=== PATIENT | female | born 1995 | race Caucasian/White ===

== ENCOUNTER → 2016-09-26 | Outpatient (CLI) | payer OTHER ==
[~2016-09-26] MED LIST: BUSP-8 PO; MAGN400T6 PO; PRENTAB26 PO
== END | disposition home or self-care (01) ==
LOC: C.PAPS 16:17
PROVIDERS: ATTEND Obstetrics & Gynecology
DX: Z12.4 Encounter for screening for malignant neoplasm of cervix (principal)

== ENCOUNTER → 2017-01-22 | Outpatient (CLI) | payer OTHER | END | disposition home or self-care (01) | LOC: C.LAB 12:14 | PROVIDERS: ATTEND Obstetrics & Gynecology | DX: Z34.01 Encounter for supervision of normal first pregnancy, first trimester (principal) ==

== ENCOUNTER → 2017-01-24 | Outpatient (CLI) | payer OTHER | LOC: C.LAB 12:52 | PROVIDERS: ATTEND Obstetrics & Gynecology | DX: Z34.01 Encounter for supervision of normal first pregnancy, first trimester (principal) ==

== ENCOUNTER → 2017-01-26 | Outpatient (CLI) | payer OTHER ==
[2017-01-26 13:08] LABS: BASO % 0.2 %; BASO ABS # 0.02 K/uL (0-0.2); COMPLETE YES; EOS % 0.8 %; HEMATOCRIT 39.7 % (37-47); IG% 0.3 %; LYMPH % 24.1 %; LYMPH ABS # 2.45 K/uL (1.2-3.4); MEAN CELL VOLUME 83.6 fL (80-100); MEAN CORPUSCULAR HEMOGLOBIN 28.6 pg (25-34); MEAN CORPUSCULAR HGB CONC 34.3 g/dl (32-36); MONO % 4.7 %; NEUT % 69.9 %; PLATELET COUNT 363 K/uL (130-400); RED BLOOD COUNT 4.75 M/uL (4.2-5.4); WHITE BLOOD COUNT 10.16 K/uL (4.8-10.8)
== END | disposition home or self-care (01) ==
LOC: C.LAB 12:09
PROVIDERS: ATTEND Nurse Practitioner
DX: D72.829 Elevated white blood cell count, unspecified (principal)

== ENCOUNTER 2017-02-21 08:02 | Emergency (ER) | payer OTHER ==
[~2017-02-21] VITALS: Ht 160 cm; Wt 77.1 kg
[2017-02-21 08:11] VITALS: TEMP 36.9; O2SAT 98; Ht 160 cm; Wt 77.1 kg
[2017-02-21] MEDS ORDERED: PRENTAB26 PO (08:18)
[2017-02-21] MEDS ORDERED: BUSP-8 PO (08:18)
[2017-02-21] MEDS ORDERED: MAGN400T6 PO (08:18)
[2017-02-21] MEDS ORDERED: ONDANSETRON INJ 2 MG/ML 2 ML VIAL IV STA (08:36)
[2017-02-21] MEDS ORDERED: SODIUM CHLORIDE 0.9% 1000ML 1,000 ML IV STA (08:36)
[2017-02-21 08:48] LABS: BASO % 0.1 %; BASO ABS # 0.01 K/uL (0-0.2); COMPLETE YES; EOS % 0.2 %; HEMATOCRIT 43.5 % (37-47); IG% 0.2 %; LYMPH % 14.8 %; LYMPH ABS # 1.86 K/uL (1.2-3.4); MEAN CELL VOLUME 82.9 fL (80-100); MEAN CORPUSCULAR HEMOGLOBIN 28.6 pg (25-34); MEAN CORPUSCULAR HGB CONC 34.5 g/dl (32-36); MEAN PLATELET VOLUME 9.1 fL (7.4-10.4); MONO % 3.8 %; NEUT % 80.9 %; PLATELET COUNT 332 K/uL (130-400); RED BLOOD COUNT 5.25 M/uL (4.2-5.4); WHITE BLOOD COUNT 12.58 K/uL (4.8-10.8)
[2017-02-21 08:57] LABS: ALT/SGPT 13 U/L (12-78); BLOOD UREA NITROGEN 7 mg/dl (7-18); BUN/CREATININE RATIO 11.4 (10-20); CALCIUM 9.2 mg/dl (8.5-10.1); CARBON DIOXIDE 25 mmol/L (21-32); CHLORIDE 104 mmol/L (98-107); CREATININE 0.57 mg/dl (0.60-1.20); GLUCOSE 93 mg/dl (70-99); POTASSIUM 3.4 mmol/L (3.5-5.1); SODIUM 137 mmol/L (136-145)
[2017-02-21 09:00] LABS: ALKALINE PHOSPHATASE 57 U/L (45-117); AST/SGOT 9 U/L (15-37)
[2017-02-21 09:33] LABS: URINE APPEARANCE CLEAR (CLEAR); URINE BILIRUBIN NEG (NEG); URINE COLOR YELLOW; URINE EPITHELIAL CELL AUTO >30 /lpf (0-5); URINE NITRITE NEG (NEG); URINE SPECIFIC GRAVITY 1.012 (1.000-1.030); UROBILINOGEN NEG (NEG)
[2017-02-21 09:38] LABS: MANUAL MICROSCOPIC REQUIRED? NO; REVIEW REQ? NO
--- NOTE | 2017-02-21 10:10 | DIAGNOSTIC IMAGING REPORT ---
ABDOMINAL ULTRASOUND, RIGHT UPPER QUADRANT HISTORY: Abdominal pain and vomiting. COMPARISON: None. FINDINGS: Liver is sonographically normal. There is no biliary ductal dilatation. The common bile duct measures 5 mm in caliber. There are no gallstones. No gallbladder wall thickening is present. Pancreatic body is normal. Head and tail are partially obscured. There is no right hydronephrosis. IMPRESSION: 1. No gallstones or biliary ductal dilatation. 2. Partially obscured pancreas. Electronically signed by: Aly Silva M.D. 02/21/2017 10:09 AM Dictated Date/Time: 02/21/2017 10:08 AM
[2017-02-21 10:29] VITALS: BP 134/68; PULSE 76
--- NOTE | 2017-02-21 14:39 | EMERGENCY ROOM VISIT NOTE ---
ED Visit Note First contact with patient: 08:06 Chief Complaint: I'm vomiting and had stomach pain. History of Present Illness: Ms. Vela is a 21 year-old white female who is brought into the ED via ambulance complaining of vomiting and right upper quadrant quadrant abdominal pain. Historically patient reports she is 1, para 0 with an EDC of September 19 and a last menstrual cycle of December 13. She denies any previous abdominal surgeries or gastrointestinal diseases. Patient reports ongoing nausea and vomiting for the last week; she did contact her PROCESS IMPROVEMENT CONSULTANT physician yesterday and a prescription was phoned in for Angie but she has not been able to grain picker her medications. She reports her vomiting is constant but does increase when she eats or attempts to drink anything. She reports she had 1 episode of vomiting where she felt like there was a drop of blood in her vomit and that has not returned. She has not been able to take any medications for her nausea or vomiting. She describes her vomiting as mostly just clear fluids and occasionally gets bilious. She has not identified any alleviating factors related to the vomiting. Additionally she reports 4 days ago she developed right upper quadrant pain. Since that time her pain has been constant but waxes and wanes with her vomiting. She describes her pain as someone constantly punching the area of her discomfort. Her pain is nonradiating. She has mild relief of her discomfort when she is not vomiting. She has not taken medications for her pain prior to arrival at the hospital. Associated with all the symptoms she reports she has been having chills, she feels like she is dehydrated, lightheadedness, dizziness and a decreased appetite. Patient denies fevers, sweats, skin eruptions, skin color changes, upper respiratory tract symptoms, shortness of breath, chest pain, diarrhea, constipation, rectal bleeding, black/tarry stools, urinary symptoms, hematuria, vaginal bleeding, vaginal discharge, back/flank pain. Review of Systems: As noted above in history of present illness. All body systems were reviewed and found to be negative as noted above. Past Medical History: Patient denies. Current Medications: vitamins, magnesium oxide, buspirone. Allergies to Medications: Patient denies. Social History: Patient is currently employed; she feels safe in her home environment; she denies tobacco and alcohol use. Physical Examination: Vital Signs: Date Time Temp Pulse Resp B/P (MAP) Pulse Ox O2 Delivery O2 Flow Rate FiO2 02/21/17 10:29 76 134/68 02/21/17 08:11 36.9 93 18 129/79 98 Room Air GENERAL: 21-year-old female in mild distress due to pain and symptoms, nontoxic- appearing, afebrile and hemodynamically stable. NEUROLOGICAL: Awake, alert and oriented to person, place and time. Answering questions appropriately and following commands. Normal gait. Good hand eye coordination. SKIN: Warm, dry and pink. No soft tissue eruptions or trauma noted. HEENT: Atraumatic and normocephalic. PERRLA. Sclera white and conjunctiva pink. Oral cavity moist and pink. Pharynx is nonerythematous or edematous. Speech normal. No lymphadenopathy. Trachea midline. No jugular venous distention. BACK: No tenderness over the bony spine. No CVA tenderness. THORAX: Lungs sounds are clear to auscultation and equal bilaterally with symmetrical chest wall. No wheezing, rales or rhonchi. No crepitus, tenderness , subcutaneous air or deformities noted. HEART: Regular rate and rhythm. No gallops, rubs or murmurs are appreciated. ABDOMEN: Flat and soft with mild to moderate tenderness in the right upper quadrant; no tenderness in the pelvis or suprapubic area. Decreased bowel sounds in all quadrants. No guarding, rigidity or organomegaly. EXTREMITIES: Moves all extremities well on command and with purpose. All distal neurovascular statuses are intact and equal bilaterally. ED Course: Patient is assessed as noted above. Laboratory Testing: Test 02/21/17 08:25 02/21/17 09:20 Range/Units White Blood Count 12.58 4.8-10.8 K/uL Red Blood Count 5.25 4.2-5.4 M/uL Hemoglobin 15.0 12.0-16.0 g/dL Hematocrit 43.5 37-47 % Mean Corpuscular Volume 82.9 80-100 fL Mean Corpuscular Hemoglobin 28.6 25-34 pg Mean Corpuscular Hemoglobin Concent 34.5 32-36 g/dl Platelet Count 332 130-400 K/uL Mean Platelet Volume 9.1 7.4-10.4 fL Neutrophils (%) (Auto) 80.9 % Lymphocytes (%) (Auto) 14.8 % Monocytes (%) (Auto) 3.8 % Eosinophils (%) (Auto) 0.2 % Basophils (%) (Auto) 0.1 % Neutrophils # (Auto) 10.18 1.4-6.5 K/uL Lymphocytes # (Auto) 1.86 1.2-3.4 K/uL Monocytes # (Auto) 0.48 0.11-0.59 K/uL Eosinophils # (Auto) 0.03 0-0.5 K/uL Basophils # (Auto) 0.01 0-0.2 K/uL RDW Standard Deviation 39.3 36.4-46.3 fL RDW Coefficient of Variation 13.1 11.5-14.5 % Immature Granulocyte % (Auto) 0.2 % Immature Granulocyte # (Auto) 0.02 0.00-0.02 K/uL Sodium Level 137 136-145 mmol/L Potassium Level 3.4 3.5-5.1 mmol/L Chloride Level 104 98-107 mmol/L Carbon Dioxide Level 25 21-32 mmol/L Anion Gap 8.0 3-11 mmol/L Blood Urea Nitrogen 7 7-18 mg/dl Creatinine 0.57 0.60-1.20 mg/dl Est Creatinine Clear Calc Drug Dose 153.5 ml/min Estimated GFR () > 150.0 Estimated GFR (Non- 132.5 BUN/Creatinine Ratio 11.4 10-20 Random Glucose 93 70-99 mg/dl Calcium Level 9.2 8.5-10.1 mg/dl Total Bilirubin 0.3 0.2-1 mg/dl Direct Bilirubin < 0.1 0-0.2 mg/dl Aspartate Amino Transf (AST/SGOT) 9 15-37 U/L Alanine Aminotransferase (ALT/SGPT) 13 12-78 U/L Alkaline Phosphatase 57 45-117 U/L Total Protein 8.1 6.4-8.2 gm/dl Albumin 3.9 3.4-5.0 gm/dl Lipase 124 73-393 U/L Human Chorionic Gonadotropin, Quant 03213 mIU/mL Urine Color YELLOW Urine Appearance CLEAR CLEAR Urine pH 8.0 4.5-7.5 Urine Specific [place] 1.012 1.000-1.030 Urine Protein NEG NEG Urine Glucose (UA) NEG NEG Urine Ketones 1+ NEG Urine Occult Blood NEG NEG Urine Nitrite NEG NEG Urine Bilirubin NEG NEG Urine Urobilinogen NEG NEG Urine Leukocyte Esterase TRACE NEG Urine WBC (Auto) 1-5 0-5 /hpf Urine RBC (Auto) 0-4 0-4 /hpf Urine Hyaline Casts (Auto) 0 0-5 /lpf Urine Epithelial Cells (Auto) >30 0-5 /lpf Urine Bacteria (Auto) 1+ NEG Gallbladder Ultrasound: Was reviewed by myself and read by the radiologist showing normal-appearing liver, pancreatic body. No right hydronephrosis. No biliary duct dilatation, normal-appearing common bile duct, no evidence of gallstone normal thickening. Patient was initially hydrated with normal saline and received 4 mg of Zofran IV ; she refused any pain medications. Patient was reassessed multiple times during her stay in the emergency department. Patient's case was reviewed with Dr. Lozano; we agreed on diagnostic approach, treatment, disposition and plan. Patient was trialed on juice and crackers and had no return of nausea/vomiting or pain. Patient was educated about today's findings and instructed on her treatment plan ; she verbalizes understanding and agreement with this plan. Clinical Impression: Nausea/vomiting. Right upper quadrant abdominal pain. Decision-Making: A shunt in my differential diagnosis I considered morning sickness, gravity hematemesis, pancreatitis, hepatitis, pyelonephritis, gastritis and other causes. Disposition: Patient discharged home in stable condition; prior to departure she was reassessed and subjectively reported that she was pain and symptom-free. Plan: Patient was encouraged use 650 mg of acetaminophen every 6 hours as needed for pain. Patient was encouraged to grain picker her prescription of Zofran and use it as its prescribed. Patient was encouraged to stay well-hydrated with increased clear fluids and use a bland diet for the next 48 hours. Patient is encouraged to follow-up with her PCP or marketing agent in the next 2-3 days for recheck. Patient was encouraged return ED for worsening nausea/vomiting, bloody vomitus, worsening abdominal pain, vaginal bleeding, fevers or any new/concerning symptoms. Patient was encouraged to follow-up with personal physician for recheck in 1-2 days. Patient was encouraged return the ED for worsening symptoms, fevers, or any new/ concerning symptoms.
== END 2017-02-21 10:59 | disposition home or self-care (01) ==
LOC: EDBD 08:02 → C.EDA 08:04
DX: R11.2 Nausea with vomiting, unspecified (principal); R10.11 Right upper quadrant pain

== ENCOUNTER 2017-08-09 21:24 | Observation (INO) | payer OTHER ==
[~2017-08-09] VITALS: Ht 160 cm; Wt 87.7 kg
[2017-08-09 22:11] VITALS: Ht 160 cm; Wt 87.7 kg
[2017-08-09 22:17] LABS: HEMATOCRIT 35.4 % (37-47); HEMOGLOBIN 12.2 g/dL (12.0-16.0); MEAN CELL VOLUME 82.5 fL (80-100); MEAN CORPUSCULAR HEMOGLOBIN 28.4 pg (25-34); MEAN PLATELET VOLUME 10.3 fL (7.4-10.4); PLATELET COUNT 231 K/uL (130-400); RED CELL DISTRIBUTION WIDTH CV 12.8 % (11.5-14.5); RED CELL DISTRIBUTION WIDTH SD 38.1 fL (36.4-46.3); WHITE BLOOD COUNT 12.47 K/uL (4.8-10.8)
[2017-08-09 22:34] LABS: MEAN CORPUSCULAR HGB CONC 34.5 g/dl (32-36)
[2017-08-09 22:39] LABS: ALBUMIN 2.5 gm/dl (3.4-5.0); CALCIUM 8.7 mg/dl (8.5-10.1); CREATININE 0.66 mg/dl (0.60-1.20); POTASSIUM 3.9 mmol/L (3.5-5.1); TOTAL PROTEIN 6.5 gm/dl (6.4-8.2)
[2017-08-09] MEDS ORDERED: ONDA4TAB46 PO (22:40)
[2017-08-09] MEDS ORDERED: LACTATED RINGER'S 1000ML 1,000 ML IV SCH (23:25)
[2017-08-09] MEDS ORDERED: LACTATED RINGER'S 1000ML 500 ML IV ONE (23:25)
[2017-08-10] MEDS ORDERED: IV FLUIDS COMPLETED PRN (05:45)
--- NOTE | 2017-08-10 06:41 | Progress Note ---
Progress Note Date of Service Aug 10, 2017. Progress Note Pt seen thru Er for elevated Bp anf dizziness. Pt's chart from clinic is reviewed thru [facility] onarrival Bop's 130'/90 No headache SOB, RUQ pain or visual changes Pt simply states" I don't feel well" PE; Unremarkable except for 2+ edema bilat LE PIH labs Nml FHR' CAT1 Pt ke[t overnight Pt reports feeling much better this AM disch home with instructions has appt to be seen in office later today
--- NOTE | 2017-08-10 06:43 | Discharge Instructions ---
Discharge Instructions Date of Service Aug 10, 2017. Admission Reason for Admission: Check Blood Pressure Discharge Discharge Diagnosis / Problem: same Discharge Goals Goal(s): Continuing OB care Activity Recommendations Activity Limitations: as noted below ACTIVITY RECOMMENDATIONS: See Labor Sheet. SPECIAL CARE INSTRUCTIONS: Call Doctor if: * Regular contractions every 5 minutes or greater than contractions in one hour. * Bleeding * Water breaks or is leaking * Decreased movement * Fever >100.4 degrees F * Pain not relieved by routine measures or pain medication ordered. FOLLOW UP VISIT: Return to Labor and Delivery on for /call for appointment time . Follow-up Visit with: When: . Current Hospital Diet Patient's current hospital diet: Discharge Diet Recommended Diet: Regular Diet Pending Studies Studies pending at discharge: no Medical Emergencies . Who to Call and When: Medical Emergencies: If at any time you feel your situation is an emergency, please call 911 immediately. . Non-Emergent Contact Non-Emergency issues call your: Specialist . . "Provider Documentation" section prepared by Prashant Galarza. .
== END 2017-08-10 07:30 | disposition home or self-care (01) ==
LOC: C.LD 21:24 → C.OPB 21:24 → C.LD 08-10 05:06
PROVIDERS: ADMIT Obstetrics & Gynecology; ATTEND Obstetrics & Gynecology
DX: O99.89 Other specified diseases and conditions complicating pregnancy, childbirth and the puerperium (principal); R03.0 Elevated blood-pressure reading, without diagnosis of hypertension; R42 Dizziness and giddiness; Z3A.00 Weeks of gestation of pregnancy not specified

== ENCOUNTER 2017-08-10 23:08 | Outpatient (CLI) | payer OTHER ==
[~2017-08-10] VITALS: Ht 160 cm; Wt 90.3 kg
[~2017-08-10 23:08] MED LIST changes: -MAGN400T6 PO; +ONDA4TAB46 PO
[2017-08-10 23:54] VITALS: Ht 160 cm; Wt 90.3 kg
[2017-08-21] MEDS ORDERED: MISC-836 (09:46)
[2017-08-22] MEDS ORDERED: PRC10 PO (07:30)
--- NOTE | 2017-08-23 08:27 | EDITING REQUIRED CODING QUERY ---
DIAGNOSIS NEEDED To promote full compliance with coding requirements relating to patient care, physician participation is requested in all cases of certified professional midwife uncertainty. Please assist us with the question(s) below: Coding Question: The patient received care in labor and delivery on 08/10/17 as noted within the record. Please document the diagnosis that is being addressed by the medication/treatment. Provider Response: DIAGNOSIS: Elevated Blood pressures, not preeclamptic WEEKS OF GESTATION: 34.2 weeks Thank you for your assistance, Zenaida Huynh - Aircraft Sales Representative
== END 2017-08-10 23:55 | disposition home or self-care (01) ==
LOC: C.LD 23:08 → C.OPB 23:08
PROVIDERS: ATTEND Obstetrics & Gynecology
DX: O99.89 Other specified diseases and conditions complicating pregnancy, childbirth and the puerperium (principal); R03.0 Elevated blood-pressure reading, without diagnosis of hypertension; Z3A.34 34 weeks gestation of pregnancy

== ENCOUNTER 2017-08-18 20:36 | Inpatient (IN) | payer OTHER ==
[~2017-08-18] VITALS: Ht 160 cm; Wt 90.0 kg
[2017-08-18 20:47] VITALS: BMI 35.1
[2017-08-18 22:01] LABS: ALBUMIN 2.5 gm/dl (3.4-5.0); CALCIUM 8.5 mg/dl (8.5-10.1); CREATININE 0.62 mg/dl (0.60-1.20); POTASSIUM 3.5 mmol/L (3.5-5.1); TOTAL PROTEIN 6.4 gm/dl (6.4-8.2)
[2017-08-18] MEDS ORDERED: LACTATED RINGER'S 1000ML 1,000 ML IV PRN ×2 (22:01→22:29)
[2017-08-18 22:08] LABS: BASO % 0.1 %; BASO ABS # 0.01 K/uL (0-0.2); EOS % 0.2 %; EOS ABS # 0.02 K/uL (0-0.5); HEMATOCRIT 34.5 % (37-47); HEMOGLOBIN 11.9 g/dL (12.0-16.0); IG# 0.04 K/uL (0.00-0.02); LYMPH % 22.5 %; LYMPH ABS # 2.91 K/uL (1.2-3.4); MEAN CELL VOLUME 82.1 fL (80-100); MEAN CORPUSCULAR HEMOGLOBIN 28.3 pg (25-34); MEAN PLATELET VOLUME 9.9 fL (7.4-10.4); MONO % 7.3 %; MONO ABS # 0.95 K/uL (0.11-0.59); NEUT % 69.6 %; PLATELET COUNT 244 K/uL (130-400); RED CELL DISTRIBUTION WIDTH SD 38.9 fL (36.4-46.3); WHITE BLOOD COUNT 12.93 K/uL (4.8-10.8)
[2017-08-18 22:12] LABS: MEAN CORPUSCULAR HGB CONC 34.5 g/dl (32-36)
[2017-08-18] MEDS ORDERED: PENICILLIN G POTASSIUM IV 6 MU in DEXTROSE 5% 250ML 250 ML IV ONE (22:15)
[2017-08-18] MEDS ORDERED: LACTATED RINGER'S 1000ML 1,000 ML IV SCH (22:29)
[2017-08-18] MEDS ORDERED: ACETAMINOPHEN 325 MG TAB PO PRN (22:30)
[2017-08-18 22:54] VITALS: Ht 160 cm; Wt 90.0 kg
[2017-08-18] MEDS ORDERED: IV FLUIDS COMPLETED PRN (23:45)
--- NOTE | 2017-08-19 00:28 | HISTORY & PHYSICAL EXAMINATION ---
DATE OF ADMISSION: 08/18/2017 CHIEF COMPLAINT: Leakage of fluid and contractions. HISTORY OF PRESENT ILLNESS: The patient is a 22-year-old G1, P0 at 35 weeks and 3 days of gestation who has been having irregular contractions all day today and then started to feel leakage of fluid around 3:00 p.m. It was a small amount of clear fluid and then she kept having leaking as gushes. She presented to labor and delivery this evening for evaluation. Contractions have been irregular every 2-4 minutes with a esba-te-wqyowkch pain. She denies any vaginal bleeding, fever, chills, chest pain, shortness of breath. She denies headache, change in her vision, nausea, vomiting, epigastric or right upper quadrant pain. Upon presenting to labor and delivery, AmniSure testing was positive and I performed a speculum exam. She was grossly ruptured. Ferning positive on the slide and nitrazine was positive. Her cervix was 2 cm, 60%, -2, vertex. 1. Her has been complicated by history of migraines. 2. Gestational hypertension without proteinuria. She had elevated high blood pressures 2 weeks ago and her blood work and 24-hour urine protein was normal. Repeat blood pressures were normal. 3. History of anxiety, depression. She is on BuSpar. Upon explaining the disucssion of premature rupture of membranes, patient appeared to be nervous and she wanted to be transferred to tertiary care center due to her baby being . I called [facility] for transfer, but they did not have enough beds for transfer and I then called [facility] and they did not accept her insurance. I explained this to the patient and the survival rate for late babies and unpredictability of the need for transfer after delivery. The patient decided to stay here and not to be transferred. I explained that to the abap developer home sales service professional and she is aware she is being admitted for labor now and plans to be in for delivery. PAST MEDICAL HISTORY: As above. PAST SURGICAL HISTORY: None. MEDICATIONS: vitamin, Zofran as needed, BuSpar 10 mg twice a day. SOCIAL HISTORY: The patient denies smoking, alcohol, or drug use. GYNECOLOGIC HISTORY: The patient denies history of STDs including Chlamydia, gonorrhea, herpes. This is her first . LABS: Her blood type is A positive, antibody screening negative, 1-hour Glucola was normal. H and H was 12/37. Rubella titer positive, RPR nonreactive, hepatitis B surface antigen negative. GC chlamydia cultures were negative. TSH 0.79. HIV nonreactive. Hepatitis C antibody negative. Vitamin D level was 27 and GBS culture was negative and liver enzymes, platelets, and 24-hour urine protein level were normal on 08/09/2017. PHYSICAL EXAMINATION: GENERAL: The patient is alert, oriented x3, not in acute distress. VITAL SIGNS: Blood pressure was 152/102, repeat was 142/88. CARDIOVASCULAR SYSTEM: S1, S2, RRR. LUNGS: Clear to auscultation bilaterally. ABDOMEN: Soft, gravid, Keo 5-1/2 to 6 pounds. EXTREMITIES: Nontender, no edema. PELVIC: Speculum exam, there is pooling. Nitrazine positive. Ferning positive, grossly ruptured. Cervix is 2, 60, -2, vertex. LABORATORY DATA: Her blood work H and H today 11.9/34.5, platelets 244. Chemistry including creatinine, ALT, AST, LDH are normal and urine has 1+ protein, trace blood. Calcium oxalate crystals and AmniSure testing was positive, heart rate was 140s, category 1. [place] contractions every 2-3 minutes. ASSESSMENT AND PLAN: The patient is a 22-year-old G1, P0 at 35 weeks and 3 days of gestation presenting with premature rupture of membranes and contractions. Vital signs stable, afebrile. GBS negative. heart rate reassuring and discussed late labor and PROM and recommendation of ACOG as delivery. The patient understands unpredictability of how the baby will do after. She decided to be admitted here for delivery. Plan is admit her, start IV fluids, pain management, and expecting management for now, possible augmentation of contraction if no cervical change and anticipates spontaneous vaginal delivery. MTDD
[2017-08-19] MEDS ORDERED: EpHEDrine SULFATE INJ 50 MG/ML AMP ONE (01:19)
[2017-08-19] MEDS ORDERED: BUPIVACAINE 0.25% 30 ML VIAL ONE (01:19)
[2017-08-19] MEDS ORDERED: FENTANYL CITRATE INJ 50 MCG/1 ML 2 ML VIAL ONE (01:19)
[2017-08-19] MEDS ORDERED: FENTANYL 2MCG/ML ROPIV 1.25MG/ML 100ML BAG ONE (01:20)
[2017-08-19] MEDS: LACTATED RINGER'S 1000ML 1,000 ML IV SCH ×2 (02:03→08:26)
[2017-08-19] MEDS ORDERED: NALOXONE HCL INJ 1 MG in SODIUM CHLORIDE 0.9% 1000ML 1,000 ML IV PRN (03:13)
[2017-08-19] MEDS ORDERED: LACTATED RINGER'S 1000ML 500 ML IV PRN ×2 (03:13→05:20)
[2017-08-19] MEDS ORDERED: ONDANSETRON INJ 2 MG/ML 2 ML VIAL IV PRN (03:15)
[2017-08-19] MEDS ORDERED: DiphenhydrAMINE HCL 50 MG/ML VIAL IV PRN (03:15)
[2017-08-19] MEDS ORDERED: NALOXONE HCL INJ 0.4 MG/1 ML VIAL/CARP IV PRN (03:15)
[2017-08-19] MEDS ORDERED: NALBUPHINE HCL INJ 10 MG/ML AMP IV PRN (03:15)
[2017-08-19] MEDS ORDERED: EpHEDrine SULFATE INJ 50 MG/ML AMP IV PRN (03:15)
[2017-08-19] MEDS ORDERED: OXYTOCIN 30 UNITS/500ML NSS IV PRN ×2 (05:30→11:15)
[2017-08-19] MEDS: FENTANYL 2MCG/ML ROPIV 1.25MG/ML 100ML BAG EPI PRN ×2 (06:55→09:07)
[2017-08-19] MEDS ORDERED: HydrALAZINE HCL 20 MG/ML VIAL IM STA (10:26)
[2017-08-19] MEDS ORDERED: HydrALAZINE HCL 20 MG/ML VIAL ONE (10:31)
[2017-08-19] MEDS ORDERED: HydrALAZINE HCL 20 MG/ML VIAL IV. STA (10:36)
[2017-08-19] MEDS ORDERED: LACTATED RINGER'S 1000ML 1,000 ML IV SCH (11:05)
[2017-08-19] MEDS ORDERED: LANOLIN OINT EXT PRN (11:15)
[2017-08-19] MEDS ORDERED: HYDROCORTISONE ACETATE 25 MG SUPP PR PRN (11:15)
[2017-08-19] MEDS ORDERED: OXYCODONE/ACETAMINOPHEN 5-325 TAB PO PRN (11:15)
[2017-08-19] MEDS ORDERED: DIPHTHERIA/TETANUS/PERTUSSIS 0.5 ML SYR/VIAL IM. ONE (11:15)
[2017-08-19] MEDS ORDERED: MEASLES, MUMPS & RUBELLA VIRUS VIAL SQ. ONE (11:15)
[2017-08-19] MEDS ORDERED: SUPERCREAM 0.870 % 15GM JAR EXT PRN (11:15)
[2017-08-19] MEDS ORDERED: BENZOCAINE 20% AER SPR 82.5 GM CAN EXT PRN (11:15)
--- NOTE | 2017-08-19 11:44 | DELIVERY SUMMARY ---
DATE OF OPERATION: 08/19/2017 TIME OF DELIVERY OF BABY: 10:40 a.m. TIME OF DELIVERY OF PLACENTA: 10:52 a.m. DETAILS OF DELIVERY: The patient was found to be fully dilated and desired to push. She pushed for about 15 minutes and delivered the head without difficulty. Shoulders were delivered with minimal traction. Baby was handed off to the mother. Mouth and nose were suctioned. Cord was clamped x2 and cut after 1 minute delay and then cord blood was obtained, it was 3-vessel cord. Vagina and perineum were checked for lacerations. There was a small about 2 cm second degree perineal laceration in the posterior fourchette and very tiny superficial first degree laceration on the right labia. The perineal laceration was repaired with 2-0 Vicryl in a running fashion, skin in a subcuticular fashion, and the labial laceration was repaired with one figure of eight stitches with 3-0 Vicryl in a SH needle. Excellent hemostasis was achieved. The placenta was found to be in the vagina, delivered spontaneously as intact and complete. Uterus was explored, found to be empty and lower segment was cleared off all clots and debris. Fundus was firm. EBL was 300. Mom and baby tolerated the procedure well. Sponge, lap, needle, and instrument counts were correct x2. Delivered a viable male infant. Apgars 8/9. Weight was 2299 gr. No complications happened and I was present during whole procedure. I attest to the content of the Intraoperative Record and any orders documented therein. Any exceptions are noted below. MTDD
--- NOTE | 2017-08-19 12:06 | Anesthesia Procedure Note ---
Anesthesia Epidural Removal Nt Date & Time Aug 19, 2017 at 12:06 Vital Signs Pain Intensity: 6.0 Notes Mental Status: alert / awake / arousable, participated in evaluation Nausea / Vomiting: adequately controlled Pain: adequately controlled Airway Patency, RR, SpO2: stable & adequate BP & HR: stable & adequate Hydration State: stable & adequate Neuraxial Anesthesia: was administered Anesthetic Complications: no major complications apparent, pt satisfied with anesthetic care Epidural: removed without complications, with tip intact
[2017-08-19] MEDS: IBUPROFEN 600 MG TAB PO PRN ×2 (12:10→23:47)
[2017-08-19 14:25] VITALS: BP 130/75; PULSE 86; TEMP 36.9
[2017-08-19 15:00] VITALS: BP 130/92; PULSE 77; TEMP 36.4
[2017-08-19] MEDS: ACETAMINOPHEN 325 MG TAB PO PRN (18:50)
[2017-08-19] MEDS: DOCUSATE SODIUM 100 MG CAP PO SCH (20:15)
[2017-08-19 20:20] VITALS: BP 122/77; PULSE 72; TEMP 36.4; O2SAT 98
[2017-08-19 23:55] VITALS: BP 131/85; PULSE 89; TEMP 36.5; O2SAT 97
[2017-08-20] VITALS: BP 145/97; PULSE 76; TEMP 36.9
[2017-08-20 03:30] VITALS: BP 125/79; PULSE 86; TEMP 36.4; O2SAT 97
[2017-08-20 07:43] LABS: HEMATOCRIT 31.8 % (37-47); HEMOGLOBIN 10.9 g/dL (12.0-16.0)
[2017-08-20 07:45] VITALS: BP 133/87; PULSE 72; TEMP 36.5; O2SAT 98
[2017-08-20] MEDS: DOCUSATE SODIUM 100 MG CAP PO SCH ×2 (08:16→20:22)
[2017-08-20] MEDS: PRENATAL VITAMIN TAB PO SCH (08:16)
[2017-08-20] MEDS: FERROUS SULFATE 325 MG TAB PO SCH (08:16)
[2017-08-20] MEDS: IBUPROFEN 600 MG TAB PO PRN ×2 (08:17→17:16)
--- NOTE | 2017-08-20 08:29 | OB/GYN Progress Note ---
[employer] Progress Note Date of Service Aug 20, 2017. Subjective conversation w/ patient, physical exam Ambulation: ambulating normally Voiding: no voiding problems Passing Gas: Yes Diet Tolerance: Regular Diet Lochia: Small Feeding Type: Breast Feeding Pain: 6/10 Notes: Doing well. Pain well controlled. Ambulating without difficulty. Tolerating regular diet. Lochia minimal. Objective Vital Signs Date Time Temp Pulse Resp B/P (MAP) Pulse Ox O2 Delivery O2 Flow Rate FiO2 08/20/17 03:30 36.4 86 18 125/79 (94) 97 Room Air 08/19/17 23:55 97 Room Air 08/19/17 23:55 36.5 89 18 131/85 (100) 97 Room Air 08/19/17 20:20 36.4 72 18 122/77 (92) 98 Room Air 08/19/17 15:00 36.4 77 16 130/92 (105) Room Air 08/19/17 15:00 Room Air 08/19/17 14:25 36.9 86 20 130/75 (93) Room Air Physical Exam General Appearance: WELL-APPEARING Respiratory/Chest: chest non-tender, lungs clear Cardiovascular: regular rate, rhythm Abdomen: normal bowel sounds, soft Fundus: Firm Extremities: normal range of motion, non-tender, no calf tenderness Laboratory Results Last 24 Hours Test 08/20/17 07:29 Hemoglobin 10.9 g/dL Hematocrit 31.8 % Assessment and Plan Post- Day Number: 1 Continue Routine Care: -Continue routine care -Anticipate D/C home tomorrow AM.
[2017-08-20] MEDS: ACETAMINOPHEN 325 MG TAB PO PRN (15:02)
[2017-08-20 15:20] VITALS: BP 143/91; PULSE 67; TEMP 36.9; O2SAT 97
[2017-08-20] MEDS ORDERED: BISACODYL 5 MG TABEC PO SCH (20:00)
[2017-08-21] VITALS: BP 145/97; PULSE 76; TEMP 36.9
[2017-08-21] MEDS: IBUPROFEN 600 MG TAB PO PRN ×5 (02:22→23:57)
[2017-08-21 06:40] LABS: HEMATOCRIT 31.1 % (37-47); HEMOGLOBIN 10.7 g/dL (12.0-16.0); MEAN CELL VOLUME 82.9 fL (80-100); MEAN CORPUSCULAR HEMOGLOBIN 28.5 pg (25-34); MEAN CORPUSCULAR HGB CONC 34.4 g/dl (32-36); MEAN PLATELET VOLUME 9.5 fL (7.4-10.4); PLATELET COUNT 212 K/uL (130-400); RED CELL DISTRIBUTION WIDTH CV 13.1 % (11.5-14.5); RED CELL DISTRIBUTION WIDTH SD 39.7 fL (36.4-46.3); WHITE BLOOD COUNT 11.36 K/uL (4.8-10.8)
[2017-08-21] MEDS ORDERED: BISACODYL 10 MG SUPP PR PRN (07:00)
--- NOTE | 2017-08-21 07:28 | OB/GYN Progress Note ---
[employer]UN[employer] Progress Note Date of Service: August 21, 2017. Patient is seen and examined. She feels well, no complaints. Ambulating without dizziness Voiding without difficulty Tolerating regular diet with out N&V Bleeding is minimal No fever/ chills/ CP/ SOB/ N&V/ Leg pain No ARENAS/ Change in vision Breast feeding without problems Date Time Temp Pulse Resp B/P (MAP) Pulse Ox O2 Delivery O2 Flow Rate FiO2 08/21/17 00:00 36.9 76 16 145/97 (113) 08/21/17 00:00 Room Air 08/20/17 15:20 36.9 67 20 143/91 (108) 97 Room Air 08/20/17 15:20 97 Room Air 08/20/17 07:45 Room Air 08/20/17 07:45 36.5 72 16 133/87 (102) 98 Room Air PE: General: Alert, orientedx3, NAD Abd: soft, NT, fundus firm, below Umbilicus Perineum intact, Lochia rubra minimal Ext; NT, no edema AP: 22 yo s/p , PPROM, Gest HT with no proteinuria ppd# 2 VSS Afebrile doing well BP's were WNL after delivery, last 2 slightly elevated Will recheck before d/c Continue routine care All questions were answered Instructions were given when to call D/C home , f/u in office in a week
--- NOTE | 2017-08-21 07:30 | Discharge Instructions ---
Discharge Instructions Date of Service August 21, 2017. Admission Reason for Admission: Premature Membrane Rupture Discharge Discharge Diagnosis / Problem: Discharge Goals Goal(s): Routine recovery after delivery Medications Continue Dispensed Medications: other Activity Recommendations Activity Limitations: as noted below ACTIVITY RECOMMENDATIONS: * Gradual return to full activity over the next 2-3 weeks. * No lifting - nothing heavier than baby over the next 2-3 weeks. * Do not engage in vigorous exercise, sexual activity or sports until cleared by your physician. * Do not drive or operate any motorized equipment until cleared by your physician. * You may shower/bathe daily. BREAST CARE: If you are not breast feeding: * Wear a supportive bra 24 hours a day for one to two weeks. * Avoid stimulating your breasts and nipples as much as possible during the first few weeks after delivery. * When taking a shower, have the warm water hit your back, not breasts. * When your breasts feel full, apply ice packs. Usually three to four times a day helps ease the discomfort. * Take a mild pain medication (Tylenol/Motrin) when you are uncomfortable. If breast feeding: * Use breast milk to lubricate nipples. Lansinoh cream may be used for sore nipples. You do not need to remove cream prior to breast feeding. If using a different brand of cream, check the label for directions regarding removal of cream prior to nursing. * Wear a supportive bra. * If having problems with breasts or breast feeding, call a cardiology clinical consultant or your health care provider. EPISIOTOMY CARE: After delivery, if you have an episiotomy (stitches), the following steps will ease discomfort and aid healing. * For the first 24 hours after delivery, place ice packs next to your episiotomy to help reduce swelling. * After the first 24 hour-period, sitz baths, either portable or in the tub, are suggested. A shower with a shower arm sprayed over the episiotomy may be comforting. * Venus care should be done after each voiding and bowel movement. Squirt warm water from a plastic bottle over the perineum (region of the body between the anus and urinary opening) and pat dry. * Use Dermoplast to ease discomfort. Shake container. [place] directly over the episiotomy. * Place a Tucks on a clean sanitary pad next to your episiotomy. OVER THE COUNTER MEDICATION: * For discomfort or pain, you may use Acetaminophen (Tylenol), Ibuprofen (Advil ), or Naproxen (Aleve) following the package directions. * For constipation you may use Colace following the package directions. SPECIAL CARE INSTRUCTIONS: When you are discharged from the hospital, it is important for you to follow the instructions listed below: * During the first week at home, you should be able to care for yourself and your baby. In addition, the usual light household activities are encouraged. * Limit your activities to the way you feel. Do not try to clean the house or move furniture. Be sensible. * If you actively engage in sports and have done so up until the time of your delivery, you may resume these activities as soon as you feel able. This may take up to one month or even longer. Use good judgment. * Continue to take your vitamins for at least six weeks after the of your baby. * Your diet need not be limited unless you were on a special diet before your delivery. Breast-feeding mothers need around 2500 calories per day and at least 64-80 ounces of fluid per day (8 to 10 glasses). * You should eat foods from the four major food groups. Crash diets or fad diets are to be avoided. Eating lean meats, fresh fruits and vegetables, low-fat dairy products, high fiber foods and a regular exercise program, will help you get back to your pre- weight without putting your health at risk. * Constipation is sometimes a problem after delivery. Take a mild laxative as needed. If breast feeding, Milk of Magnesia is acceptable to use. You may use a suppository or Fleets enema if no episiotomy. * A daily shower or tub bath is suggested. Be sure to thoroughly and gently dry the perineum. * A bloody vaginal discharge will usually continue until around four weeks post . A small amount of bleeding may continue for as long as six weeks. Vaginal discharge changes from the bright red bleeding after delivery to pink then brownish and finally yellowish-pink before becoming white and disappearing. * Bleeding may increase with activity. Your first period may come in 4-8 weeks. If you are breast feeding, your period may be delayed even longer. * [place] (sex) can begin whenever both you and your partner feel comfortable and do not have any form of genital infection. It is recommended that you wait until after your return appointment and discuss with your physician. If you have questions, please talk to your health care practitioner. A condom should be used to prevent infection and . * Foreplay, gentle intercourse and lubrication is very important the first several times to prevent pain. A water-based lubricant such as K-Y jelly or Astroglide may be used. * Tampons may be used six weeks after delivery. * Douching should be avoided for 6 weeks after delivery. * If you have RH negative blood and your baby is RH positive, you will receive RHOGAM by injection prior to discharge. The nurse will give you a card to keep with you that has the date and place that you received RHOGAM after delivery. * During your care, you had a Rubella screen done to check for the presence of rubella antibodies in your blood. If your test was negative, you will receive a Rubella vaccine prior to discharge. This vaccine may cause a fever, soreness at the injection site and flu-like symptoms. If these symptoms persist, notify your health care practitioner. is not advised for three months after a Rubella vaccine. There is a higher chance of having a baby with defects if conceived within three months of getting the vaccine. * If you were discharged 24 hours from delivery or before 48 hours: Visiting nurses will come to your home 48 hours after discharge to assess you and your baby. The visiting nurse will meet with you while you are in the hospital to arrange a time and get directions to your home. * Verbalizes understanding of car seat law as reviewed with patient nursing. * Car Seat hand-out given and reviewed with patient by nursing. * Shaken baby information reviewed with patient by nursing. Call you doctor if: * Heavy bleeding (saturating several pads an hour) or passing clots the size of your fist. * A fever >101 degrees F (38.3 degrees C) on two occasions four hours apart and/or chills. * Unusual pain in the pelvic or vaginal areas. * "Baby Blues" lasting longer than two weeks. If you have any questions or concerns, call your health care practitioner at . FOLLOW-UP VISIT: * Please call the office at to schedule a 6 week examination. It is important you keep this appointment. * It is important for you to make arrangements for either yearly or twice yearly check-ups thereafter. . Current Hospital Diet Patient's current hospital diet: Regular OB Diet Discharge Diet Recommended Diet: Regular Diet Pending Studies Studies pending at discharge: no Medical Emergencies . Who to Call and When: Medical Emergencies: If at any time you feel your situation is an emergency, please call 911 immediately. . Non-Emergent Contact Non-Emergency issues call your: Surgeon, Specialist Call Non-Emergent contact if: temperature is above 100.5, your pain is not controlled, your pain is worsening, you have any medication questions . . "Provider Documentation" section prepared by Noah Cheung. .
[2017-08-21] MEDS: PRENATAL VITAMIN TAB PO SCH (07:57)
[2017-08-21] MEDS: DOCUSATE SODIUM 100 MG CAP PO SCH ×2 (07:57→20:00)
[2017-08-21] MEDS: FERROUS SULFATE 325 MG TAB PO SCH (07:57)
[2017-08-21 08:00] VITALS: BP 137/88; PULSE 71; TEMP 36.8
[2017-08-21] MEDS ORDERED: MISC-836 (09:46)
[2017-08-21 17:55] VITALS: BP_SYST 158; BP_SYST 165; BP_DIAS 88; BP_DIAS 97; PULSE 64; TEMP 36.9; O2SAT 98
[2017-08-21] MEDS ORDERED: NIFEdipine 10 MG CAP PO STA (18:35)
[2017-08-21] MEDS ORDERED: NURSING VERBAL MED ORDER ONE (18:45)
[2017-08-21] MEDS: NIFEdipine 10 MG CAP PO SCH (18:52)
[2017-08-21 19:18] LABS: BASO % 0.1 %; BASO ABS # 0.02 K/uL (0-0.2); EOS % 2.7 %; EOS ABS # 0.37 K/uL (0-0.5); HEMATOCRIT 32.9 % (37-47); HEMOGLOBIN 11.3 g/dL (12.0-16.0); IG# 0.05 K/uL (0.00-0.02); LYMPH % 23.9 %; LYMPH ABS # 3.23 K/uL (1.2-3.4); MEAN CELL VOLUME 82.7 fL (80-100); MEAN CORPUSCULAR HEMOGLOBIN 28.4 pg (25-34); MEAN PLATELET VOLUME 9.3 fL (7.4-10.4); MONO % 5.3 %; MONO ABS # 0.71 K/uL (0.11-0.59); NEUT % 67.6 %; NEUT ABS # 9.14 K/uL (1.4-6.5); PLATELET COUNT 247 K/uL (130-400); RED CELL DISTRIBUTION WIDTH SD 39.2 fL (36.4-46.3); WHITE BLOOD COUNT 13.52 K/uL (4.8-10.8)
[2017-08-21 19:19] LABS: MEAN CORPUSCULAR HGB CONC 34.3 g/dl (32-36)
[2017-08-21 19:37] LABS: ALBUMIN 2.4 gm/dl (3.4-5.0); CALCIUM 8.6 mg/dl (8.5-10.1); CREATININE 0.71 mg/dl (0.60-1.20); POTASSIUM 3.8 mmol/L (3.5-5.1)
[2017-08-21 19:38] LABS: TOTAL PROTEIN 6.3 gm/dl (6.4-8.2)
[2017-08-21 20:15] VITALS: BP 126/79; PULSE 106; TEMP 36.6; O2SAT 99
--- NOTE | 2017-08-21 23:14 | OB/GYN Progress Note ---
JEWEL[facility] M[facility]DER Progress Note Date of Service: August 21, 2017. Patient is reevaluated She feels well Stayed due to elevated BP's Started on Nifedipine No ARENAS/Change in vision/ N&V She was in buspar due to h/o anxiety. Has not been on since she came to the hospital No signs of anxiety or depression Offered to start again but she likes to be off for now and start if she needs to Date Time Temp Pulse Resp B/P (MAP) Pulse Ox O2 Delivery O2 Flow Rate FiO2 08/21/17 20:15 36.6 106 20 126/79 (95) 99 Room Air 08/21/17 17:55 36.9 64 20 165/97 (119) 98 Room Air 158/88 (111) 08/21/17 17:55 98 Room Air 08/21/17 09:05 Room Air 08/21/17 08:00 36.8 71 18 137/88 (104) Room Air 08/21/17 00:00 36.9 76 16 145/97 (113) 08/21/17 00:00 Room Air Last 24 Hours Test 08/21/17 06:26 08/21/17 19:06 White Blood Count 11.36 K/uL 13.52 K/uL Red Blood Count 3.75 M/uL 3.98 M/uL Hemoglobin 10.7 g/dL 11.3 g/dL Hematocrit 31.1 % 32.9 % Mean Corpuscular Volume 82.9 fL 82.7 fL Mean Corpuscular Hemoglobin 28.5 pg 28.4 pg Mean Corpuscular Hemoglobin Concent 34.4 g/dl 34.3 g/dl RDW Standard Deviation 39.7 fL 39.2 fL RDW Coefficient of Variation 13.1 % 13.0 % Platelet Count 212 K/uL 247 K/uL Mean Platelet Volume 9.5 fL 9.3 fL Neutrophils (%) (Auto) 67.6 % Lymphocytes (%) (Auto) 23.9 % Monocytes (%) (Auto) 5.3 % Eosinophils (%) (Auto) 2.7 % Basophils (%) (Auto) 0.1 % Neutrophils # (Auto) 9.14 K/uL Lymphocytes # (Auto) 3.23 K/uL Monocytes # (Auto) 0.71 K/uL Eosinophils # (Auto) 0.37 K/uL Basophils # (Auto) 0.02 K/uL Immature Granulocyte % (Auto) 0.4 % Immature Granulocyte # (Auto) 0.05 K/uL Sodium Level 141 mmol/L Potassium Level 3.8 mmol/L Chloride Level 108 mmol/L Carbon Dioxide Level 26 mmol/L Anion Gap 7.0 mmol/L Blood Urea Nitrogen 11 mg/dl Creatinine 0.71 mg/dl Est Creatinine Clear Calc Drug Dose 132.3 ml/min Estimated GFR () 140.1 Estimated GFR (Non- 120.9 BUN/Creatinine Ratio 16.0 Random Glucose 101 mg/dl Calcium Level 8.6 mg/dl Total Bilirubin 0.1 mg/dl Aspartate Amino Transf (AST/SGOT) 20 U/L Alanine Aminotransferase (ALT/SGPT) 17 U/L Alkaline Phosphatase 92 U/L Total Protein 6.3 gm/dl Albumin 2.4 gm/dl Globulin 3.9 gm/dl Albumin/Globulin Ratio 0.6 AP: 22 yo s/p PPROM, , 35.4 wks Elevated BP's, asymptomatic, normal labs On control with Nifedipine Continue to monitor closely
[2017-08-21 23:25] VITALS: BP 130/83; PULSE 94; TEMP 36.6; O2SAT 98
[2017-08-22 03:05] VITALS: BP 135/88; PULSE 71
[2017-08-22] MEDS: NIFEdipine 10 MG CAP PO SCH ×2 (03:09→11:00)
[2017-08-22] MEDS ORDERED: PRC10 PO (07:30)
[2017-08-22 07:40] VITALS: BP 150/94; PULSE 80; TEMP 36.9; O2SAT 98
[2017-08-22] MEDS: ACETAMINOPHEN 325 MG TAB PO PRN ×2 (07:40→15:39)
--- NOTE | 2017-08-22 07:41 | OB/GYN Progress Note ---
BLASTING ENTRY SPECIALIST Progress Note Date of Service August 22, 2017. Subjective conversation w/ patient, physical exam Ambulation: ambulating normally Voiding: no voiding problems Passing Gas: Yes Diet Tolerance: Regular Diet Lochia: Small Feeding Type: Breast Feeding Pain: 05/02 Notes: Has a ARENAS this morning but denies vision changes or abdominal pain. BP's wnl on nifedipine TID. Pain well controlled. Tolerating regular diet. Ambulating without difficulty. Would like to go home today. Review of Systems Constitutional: No fever, No chills, No sweats, No weight loss, No weakness, No fatigue, No problem reported Respiratory: No cough, No sputum, No wheezing, No shortness of breath, No dyspnea on exertion, No dyspnea at rest, No hemoptysis, No problem reported Cardiac: No chest pain, No orthopnea, No PND, No edema, No claudication, No palpitations, No problem reported Abdomen: No pain, No nausea, No vomiting, No diarrhea, No constipation, No GI bleeding, No problem reported Female : No see HPI, No dysuria, No urinary frequency, No hematuria, No incontinence, No abnormal vaginal bleeding, No vaginal discharge, No problem reported Objective Vital Signs Date Time Temp Pulse Resp B/P (MAP) Pulse Ox O2 Delivery O2 Flow Rate FiO2 08/22/17 03:05 71 135/88 (104) 08/21/17 23:25 Room Air 08/21/17 23:25 36.6 94 16 130/83 (99) 98 Room Air 08/21/17 20:15 36.6 106 20 126/79 (95) 99 Room Air 08/21/17 17:55 36.9 64 20 165/97 (119) 98 Room Air 158/88 (111) 08/21/17 17:55 98 Room Air 08/21/17 09:05 Room Air 08/21/17 08:00 36.8 71 18 137/88 (104) Room Air Laboratory Results Last 24 Hours Test 08/21/17 19:06 White Blood Count 13.52 K/uL Red Blood Count 3.98 M/uL Hemoglobin 11.3 g/dL Hematocrit 32.9 % Mean Corpuscular Volume 82.7 fL Mean Corpuscular Hemoglobin 28.4 pg Mean Corpuscular Hemoglobin Concent 34.3 g/dl Platelet Count 247 K/uL Mean Platelet Volume 9.3 fL Neutrophils (%) (Auto) 67.6 % Lymphocytes (%) (Auto) 23.9 % Monocytes (%) (Auto) 5.3 % Eosinophils (%) (Auto) 2.7 % Basophils (%) (Auto) 0.1 % Neutrophils # (Auto) 9.14 K/uL Lymphocytes # (Auto) 3.23 K/uL Monocytes # (Auto) 0.71 K/uL Eosinophils # (Auto) 0.37 K/uL Basophils # (Auto) 0.02 K/uL RDW Standard Deviation 39.2 fL RDW Coefficient of Variation 13.0 % Immature Granulocyte % (Auto) 0.4 % Immature Granulocyte # (Auto) 0.05 K/uL Sodium Level 141 mmol/L Potassium Level 3.8 mmol/L Chloride Level 108 mmol/L Carbon Dioxide Level 26 mmol/L Anion Gap 7.0 mmol/L Blood Urea Nitrogen 11 mg/dl Creatinine 0.71 mg/dl Est Creatinine Clear Calc Drug Dose 132.3 ml/min Estimated GFR () 140.1 Estimated GFR (Non- 120.9 BUN/Creatinine Ratio 16.0 Random Glucose 101 mg/dl Calcium Level 8.6 mg/dl Total Bilirubin 0.1 mg/dl Aspartate Amino Transf (AST/SGOT) 20 U/L Alanine Aminotransferase (ALT/SGPT) 17 U/L Alkaline Phosphatase 92 U/L Total Protein 6.3 gm/dl Albumin 2.4 gm/dl Globulin 3.9 gm/dl Albumin/Globulin Ratio 0.6 Assessment and Plan Post- Day Number: 3 Continue Routine Care: -D/C home today -continue nifedipine 10 mg TID -f/u in 1 week for BP check
[2017-08-22] MEDS: PRENATAL VITAMIN TAB PO SCH (08:42)
[2017-08-22] MEDS: FERROUS SULFATE 325 MG TAB PO SCH (08:43)
[2017-08-22] MEDS: DOCUSATE SODIUM 100 MG CAP PO SCH (08:43)
[2017-08-22 12:00] VITALS: BP 125/84; PULSE 98; TEMP 36.7; O2SAT 99
[2017-08-22] MEDS: IBUPROFEN 600 MG TAB PO PRN (12:01)
[2017-08-22 14:38] VITALS: BP_DIAS 84; PULSE 98; TEMP 36.7
== END 2017-08-22 15:40 | disposition home or self-care (01) | DRG 775 ==
LOC: C.OPB 20:36 → C.LD 20:37 → C.OPB 22:31 → C.LD 22:31 → C.OBG 08-19 14:58
PROVIDERS: ADMIT Obstetrics & Gynecology; ATTEND Obstetrics & Gynecology
PROC: 0KQM0ZZ Repair Perineum Muscle, Open Approach (ICD-10-PCS; principal; 2017-08-19)
PROC: 10E0XZZ Delivery of Products of Conception, External Approach (ICD-10-PCS; principal; 2017-08-19)
DX: O60.14X0 Preterm labor third trimester with preterm delivery third trimester, not applicable or unspecified (principal); O70.1 Second degree perineal laceration during delivery; Z3A.35 35 weeks gestation of pregnancy; Z37.0 Single live birth